=== PATIENT | male | born 1955 | race Caucasian/White ===

== ENCOUNTER 2018-06-24 15:05 | Outpatient (CLI) | payer BC, SELFPAY ==
[2018-06-25 09:22] LABS: PSA, Diagnostic 0.1 ng/ml (0-4.5)
== END 2018-06-24 15:25 ==
PROVIDERS: PCP Internal Medicine; Visit Provider Radiology Radiation Oncology
DX: C61 Malignant neoplasm of prostate (principal)
CPT/HCPCS: 36415; 84153

== ENCOUNTER 2018-09-24 13:02 | Outpatient (CLI) | payer BC, SELFPAY ==
[2018-09-25 11:58] LABS: PSA, Diagnostic <0.1 ng/ml (0-4.5)
[2018-09-26 11:00] LABS: Testosterone, Total 23 ng/dL (240-950)
== END 2018-09-24 13:22 ==
PROVIDERS: PCP Internal Medicine; Visit Provider Radiology Radiation Oncology
DX: C61 Malignant neoplasm of prostate (principal)
CPT/HCPCS: 36415; 84403; 84153

== ENCOUNTER 2019-03-18 14:49 | Outpatient (CLI) | payer BC, SELFPAY ==
[2019-03-19 14:51] LABS: PSA, Ultrasensitive <0.01 ng/mL (<= 4.5)
[2019-03-20 17:53] LABS: Testosterone, Total 14 ng/dL (240-950)
== END 2019-03-18 15:09 ==
PROVIDERS: PCP Internal Medicine; Visit Provider Radiology Radiation Oncology
DX: C61 Malignant neoplasm of prostate (principal)
CPT/HCPCS: 36415; 84153; 84403

== ENCOUNTER 2019-06-18 01:48 | Outpatient (CLI) | payer BC, SELFPAY ==
[2019-06-18 10:44] LABS: ALT 28 U/L (16-63); AST 25 U/L (15-37); Alkaline Phosphatase 82 U/L (46-116); Anion Gap 7.8 mmol/L (3-11); BUN 10 mg/dL (7-18); Bilirubin, Total 0.3 mg/dL (0.2-1.0); CO2 29.2 mmol/L (21.0-32.0); CREATININE 0.98 mg/dL (0.70-1.30); Calcium 8.9 mg/dL (8.5-10.1); Calculated LDL 144 mg/dL (<100); Chloride 100 mmol/L (98-107); Cholesterol 250 mg/dL (<200); Glucose 94 mg/dL (74-106); HDL Cholesterol 55 mg/dL (40-60); Potassium 4.5 mmol/L (3.5-5.1); Sodium 137 mmol/L (136-145); TSH 0.92 uIU/mL (0.36-3.74); Total Protein 7.2 g/dL (6.4-8.2); Triglyceride 259 mg/dL (<150)
[2019-06-19 14:52] LABS: PSA, Ultrasensitive <0.01 ng/mL (<= 4.5)
[2019-06-21 00:18] LABS: Testosterone, Total 28 ng/dL (240-950)
== END 2019-06-18 02:08 ==
PROVIDERS: PCP Internal Medicine; Visit Provider Radiology Radiation Oncology
DX: C61 Malignant neoplasm of prostate (principal); Z13.1 Encounter for screening for diabetes mellitus; Z13.220 Encounter for screening for lipoid disorders; E03.9 Hypothyroidism, unspecified
CPT/HCPCS: 36415; 80053; 80061; 84153; 84403; 83036; 84443

== ENCOUNTER 2019-09-17 04:03 | Outpatient (CLI) | payer BC, SELFPAY ==
[2019-09-17 16:41] LABS: Abs Immature Grans 0.01 k/cumm (0.0-0.09); Absolute Basophil Count 0.02 k/cumm (0.0-0.2); Absolute Eosinophil Count 0.14 k/cumm (0.0-0.7); Absolute Lymphocyte Count 0.96 k/cumm (1.2-3.4); Absolute Monocyte Count 0.45 k/cumm (0.11-0.7); Absolute Neutrophil Count 3.62 k/cumm (1.2-6.7); Basophils % 0.4; Eosinophils % 2.7; HCT 38.4 % (40.0-50.0); HGB 13.1 g/dL (13.5-17.5); Immature Grans % 0.2 %; Lymphocytes % 18.5; Mean Corp. HGB Concentration 34.1 g/dL (32.0-36.0); Mean Corpuscular Hemoglobin 31.5 pg (27.0-33.0); Mean Corpuscular Volume 92.3 fL (80-95); Mean Platelet Volume 10.2 fL (8.0-11.0); Monocytes % 8.7; Neutrophils % 69.5; Platelet Count 233 x1000/uL (130-400); RBC 4.16 m/cumm (4.50-6.00); RBC Distribution Width 13.1 % (11.8-14.1)
[2019-09-18 16:42] LABS: PSA, Ultrasensitive <0.01 ng/mL (<= 4.5)
[2019-09-22 09:08] LABS: Testosterone, Total 19 ng/dL (240-950)
== END 2019-09-17 04:23 ==
PROVIDERS: PCP Internal Medicine
DX: C61 Malignant neoplasm of prostate (principal)
CPT/HCPCS: 36415; 84153; 84403; 85025

== ENCOUNTER 2019-12-11 02:48 | Outpatient (CLI) | payer BC, SELFPAY ==
[2019-12-11 16:04] LABS: Abs Immature Grans 0.01 10^3/uL (0.0-0.06); Absolute Basophil Count 0.03 10^3/uL (0.0-0.2); Absolute Eosinophil Count 0.09 10^3/uL (0.0-0.7); Absolute Lymphocyte Count 0.94 10^3/uL (1.2-3.4); Absolute Neutrophil Count 3.37 10^3/uL (1.2-6.7); Basophils % 0.6; Eosinophils % 1.8; HCT 38.2 % (40.0-50.0); HGB 12.9 g/dL (13.5-17.5); Immature Grans % 0.2; MCH 31.2 pg (27.0-33.0); MCHC 33.8 % (32.0-36.0); MCV 92.5 fL (80-95); MPV 9.8 fL (8.0-11.0); Monocytes % 10.1; Neutrophils % 68.3; Nucleated RBC 0 %; Platelet Count 215 10^3/uL (130-400); RBC 4.13 10^6/uL (4.36-5.78); RDW 12.6 % (11.8-14.1); RDW-SD 42.7 fL; WBC 4.94 10^3/uL (4.4-10.8)
[2019-12-11 17:14] LABS: ALT 21 U/L (16-63); AST 21 U/L (15-37); Albumin 3.8 g/dL (3.4-5.0); Alkaline Phosphatase 85 U/L (46-116); Anion Gap 9.3 mmol/L (3-11); BUN 13 mg/dL (7-18); Bilirubin, Total 0.3 mg/dL (0.2-1.0); CO2 27.7 mmol/L (21.0-32.0); CREATININE 0.99 mg/dL (0.70-1.30); Calcium 9.2 mg/dL (8.5-10.1); Chloride 101 mmol/L (98-107); Glucose 118 mg/dL (74-106); Potassium 4.1 mmol/L (3.5-5.1); Sodium 138 mmol/L (136-145); Total Protein 6.8 g/dL (6.4-8.2)
[2019-12-15 11:18] LABS: PSA, Ultrasensitive <0.01 ng/mL (<= 4.5)
[2019-12-16 21:06] LABS: Testosterone, Total 13 ng/dL (240-950)
== END 2019-12-11 03:08 ==
PROVIDERS: PCP Internal Medicine
DX: C61 Malignant neoplasm of prostate (principal)
CPT/HCPCS: 36415; 80053; 84153; 84403; 85025

== ENCOUNTER → 2020-03-04 02:48 | Outpatient (CLI) | payer BC, SELFPAY ==
[2020-03-04 17:30] LABS: Calculated LDL 141 mg/dL (<100); Cholesterol 236 mg/dL (<200); HDL Cholesterol 52 mg/dL (40-60); Triglyceride 219 mg/dL (<150)
== END ==
PROVIDERS: PCP Internal Medicine; Visit Provider Nurse Practitioner
DX: Z13.220 Encounter for screening for lipoid disorders (principal); Z13.1 Encounter for screening for diabetes mellitus
CPT/HCPCS: 36415; 80061; 83036

== ENCOUNTER → 2020-03-12 04:14 | Outpatient (CLI) | payer BC, SELFPAY ==
[2020-03-16 12:19] LABS: PSA, Ultrasensitive <0.01 ng/mL (<= 4.5)
[2020-03-17 20:13] LABS: Testosterone, Total 15 ng/dL (240-950)
== END ==
PROVIDERS: PCP Internal Medicine; Visit Provider Nurse Practitioner Family
DX: C61 Malignant neoplasm of prostate (principal)
CPT/HCPCS: 36415; 84153; 84403

== ENCOUNTER 2020-09-23 04:21 | Outpatient (CLI) | payer BC, SELFPAY ==
[2020-09-23 10:39] LABS: Absolute Basophil Count 0.04 10^3/uL (0.0-0.2); Absolute Eosinophil Count 0.07 10^3/uL (0.0-0.7); Absolute Lymphocyte Count 0.92 10^3/uL (1.2-3.4); Absolute Monocyte Count 0.39 10^3/uL (0.1-0.8); Absolute Neutrophil Count 3.04 10^3/uL (1.2-6.7); Basophils % 0.9; Eosinophils % 1.6; HCT 38.2 % (40.0-50.0); HGB 12.9 g/dL (13.5-17.5); Lymphocytes % 20.6; MCH 31.5 pg (27.0-33.0); MCHC 33.8 % (32.0-36.0); MCV 93.4 fL (80-95); MPV 9.7 fL (8.0-11.0); Monocytes % 8.7; Neutrophils % 68.2; Nucleated RBC 0 %; Platelet Count 228 10^3/uL (130-400); RBC 4.09 10^6/uL (4.36-5.78); RDW 12.6 % (11.8-14.1); RDW-SD 43.2 fL; WBC 4.46 10^3/uL (4.4-10.8)
[2020-09-23 10:55] LABS: ALT 23 U/L (16-63); AST 22 U/L (15-37); Alkaline Phosphatase 83 U/L (46-116); Anion Gap 8.1 mmol/L (3-11); BUN 11 mg/dL (7-18); Bilirubin, Total 0.3 mg/dL (0.2-1.0); CO2 27.9 mmol/L (21.0-32.0); Calculated LDL 104 mg/dL (<100); Chloride 103 mmol/L (98-107); Cholesterol 213 mg/dL (<200); Glucose 127 mg/dL (74-106); HDL Cholesterol 56 mg/dL (40-60); Sodium 139 mmol/L (136-145); Total Protein 7.3 g/dL (6.4-8.2); Triglyceride 267 mg/dL (<150)
== END 2020-09-23 04:22 | disposition home or self-care (01) ==
LOC: LBO 04:21
PROVIDERS: PCP Internal Medicine; Visit Provider Nurse Practitioner Family
DX: R53.83 Other fatigue (principal); E03.9 Hypothyroidism, unspecified; E78.2 Mixed hyperlipidemia
CPT/HCPCS: 36415; 80053; 80061; 84443; 85025

== ENCOUNTER 2020-09-28 04:02 | Outpatient (CLI) | payer BC, SELFPAY ==
[2020-09-29 17:38] LABS: PSA, Ultrasensitive <0.01 ng/mL (<= 4.5)
[2020-10-02 16:22] LABS: Testosterone, Total 64 ng/dL (240-950)
== END 2020-09-28 04:03 | disposition home or self-care (01) ==
LOC: LBO 04:02
PROVIDERS: PCP Internal Medicine; Visit Provider Internal Medicine
DX: C61 Malignant neoplasm of prostate (principal)
CPT/HCPCS: 36415; 84153; 84403